=== PATIENT | male | born 1960 | race Caucasian/White ===

== ENCOUNTER 2024-10-28 11:02 | Inpatient (IN) | payer BC, MEDICARE ==
[~2024-10-28] VITALS: Ht 177.8 cm; Wt 95.5 kg
[2024-10-28] MEDS ORDERED: LOSA-30 PO (11:10)
[2024-10-28] MEDS ORDERED: AMLO-258 PO (11:10)
[2024-10-28 11:38] LABS: PLATELET COUNT (AUTO) 246 K/uL (150-450); RED BLOOD CELL COUNT(AUTO) 5.24 MIL/uL (4.50-5.90); RED CELL DISTRIBUTION WIDTH 12.8 % (11.5-14.5); WHITE BLOOD COUNT (AUTO) 7.1 K/uL (4.5-11.0)
[2024-10-28 11:48] LABS: CALCIUM, TOTAL 8.6 mg/dL (8.8-10.5); CREATININE 1.64 mg/dL (0.60-1.30); GLOMERULAR FILTR. RATE CALC 42 mL/min (>60); GLUCOSE,RANDOM 104 mg/dL (70-110); SODIUM SERUM 143 mmol/L (136-145); UREA NITROGEN, BLOOD 15 mg/dL (7-18)
[2024-10-28 11:52] LABS: ASPARTATE AMINOTRANSFERASE 31.0 U/L (15-37); TOTAL PROTEIN, SERUM 7.1 g/dL (6.4-8.2)
[2024-10-28 11:54] LABS: TROPONIN I-HIGH SENSITIVITY 17 ng/L (<76)
[2024-10-28 12:46] LABS: APPEARANCE,URINE CLEAR (CLEAR); GLUCOSE, URINE (UA) NEGATIVE (NEGATIVE); LEUKOCYTE ESTERASE ,URINE NEGATIVE (NEGATIVE); NITRATE,URINE NEGATIVE (NEGATIVE); OCCULT BLOOD,URINE NEGATIVE (NEGATIVE); PH,URINE DRUG SCREEN 7.5 (5.0-8.0); SPECIFIC GRAVITIY, URINE 1.010 (1.003-1.030)
[2024-10-28 12:52] LABS: AMPHET/METH SCREEN,URINE NEGATIVE (NEGATIVE); BARBITURATE SCREEN, URINE NEGATIVE (NEGATIVE); CANNABINOID SCREEN,URINE NEGATIVE (NEGATIVE); COCAINE SCREEN,URINE NEGATIVE (NEGATIVE); METHADONE SCREEN, URINE NEGATIVE (NEGATIVE)
[2024-10-28 12:53] LABS: ALCOHOL, URINE DRUG SCREEN NEGATIVE (NEGATIVE)
[2024-10-28] MEDS: LABETALOL HCL 5 MG/ML 20 ML VIAL IVP ONE (13:33)
[2024-10-28 17:54] VITALS: BP 187/101; PULSE 98; RESP 18; TEMP 98; O2SAT 98
[2024-10-28 18:13] VITALS: BP 159/109; PULSE 99
[2024-10-28] MEDS ORDERED: ONDANSETRON HCL 4 MG/2 ML VIAL IVP PRN (18:30)
[2024-10-28] MEDS: LABETALOL HCL 100 MG TABLET PO SCH (18:44)
[2024-10-28 20:00] VITALS: BP 165/106; PULSE 98; RESP 20; TEMP 98.4; O2SAT 97
[2024-10-28] MEDS: DOCUSATE SODIUM 100 MG CAPSULE PO SCH (20:59)
[2024-10-29] VITALS: BP 138/85; PULSE 97; RESP 20; TEMP 98.2; O2SAT 96
[2024-10-29] MEDS: HEPARIN SODIUM,PORCINE 5,000 UNITS/ML VIAL SQ SCH (00:26)
[2024-10-29] MEDS: ACETAMINOPHEN 325 MG TABLET PO PRN (00:27)
[2024-10-29 02:31] LABS: CREATININE,URINE RANDOM 253.4 mg/dL (30.0-125.0)
[2024-10-29 04:34] VITALS: BP 129/88; PULSE 78; RESP 19; TEMP 98.2; O2SAT 94
[2024-10-29 06:32] LABS: PLATELET COUNT (AUTO) 244 K/uL (150-450); RED BLOOD CELL COUNT(AUTO) 4.75 MIL/uL (4.50-5.90); RED CELL DISTRIBUTION WIDTH 12.5 % (11.5-14.5); WHITE BLOOD COUNT (AUTO) 8.2 K/uL (4.5-11.0)
[2024-10-29 06:48] LABS: CALCIUM, TOTAL 8.5 mg/dL (8.8-10.5); CREATININE 1.83 mg/dL (0.60-1.30); GLOMERULAR FILTR. RATE CALC 37.0 mL/min (>60); GLUCOSE,RANDOM 131.0 mg/dL (70-110); SODIUM SERUM 143.0 mmol/L (136-145); UREA NITROGEN, BLOOD 20.0 mg/dL (7-18)
[2024-10-29 07:41] VITALS: BP 146/91; PULSE 88; RESP 18; TEMP 98; O2SAT 95
[2024-10-29] MEDS: POTASSIUM CHLORIDE 20 MEQ ER TABLET PO ONE (08:45)
[2024-10-29 11:21] VITALS: BP 132/88; PULSE 82; RESP 18; TEMP 98; O2SAT 96
[2024-10-29] MEDS: SODIUM CHLORIDE 0.9% 500 ML IV ONE (11:23)
[2024-10-29 15:37] VITALS: BP 163/89; PULSE 98; RESP 15; TEMP 97.5; O2SAT 15
[2024-10-29] MEDS: NITROGLYCERIN 2% (1 GM=INCH) OINTMENT PACKET TP SCH (17:04)
[2024-10-29 19:39] VITALS: BP 137/98; PULSE 92; RESP 19; TEMP 97.3; O2SAT 98
[2024-10-29] MEDS: LABETALOL HCL 100 MG TABLET PO SCH (20:33)
[2024-10-30] VITALS: BP 137/89; PULSE 68
[2024-10-30 00:01] VITALS: BP 145/90; PULSE 78
[2024-10-30 00:02] VITALS: BP 148/93; PULSE 77
[2024-10-30 05:15] VITALS: BP 147/89; PULSE 66; RESP 18; TEMP 98.1; O2SAT 98
[2024-10-30 06:58] LABS: CALCIUM, TOTAL 9.3 mg/dL (8.8-10.5); CREATININE 1.79 mg/dL (0.60-1.30); GLOMERULAR FILTR. RATE CALC 38.0 mL/min (>60); GLUCOSE,RANDOM 113.0 mg/dL (70-110); SODIUM SERUM 138.0 mmol/L (136-145); UREA NITROGEN, BLOOD 22.0 mg/dL (7-18)
[2024-10-30 07:04] LABS: PHOSPHORUS 3.8 mg/dL (2.5-4.9)
[2024-10-30 08:18] VITALS: BP 146/88; PULSE 71; RESP 18; TEMP 98.1; O2SAT 97
[2024-10-30] MEDS ORDERED: LABE100T51 PO (13:23)
[2024-10-30] MEDS ORDERED: HYDR10TA31 PO (13:23)
== END 2024-10-30 16:33 | disposition home or self-care (01) | DRG 304 ==
LOC: EMS 11:05 → EDH 13:09 → 5N 17:45 → 6S 10-29 20:23
PROVIDERS: ADMIT Internal Medicine; ATTEND Internal Medicine
DX: I16.1 Hypertensive emergency (principal); N17.0 Acute kidney failure with tubular necrosis; E87.6 Hypokalemia; I12.9 Hypertensive chronic kidney disease with stage 1 through stage 4 chronic kidney disease, or unspecified chronic kidney disease; N18.9 Chronic kidney disease, unspecified; T46.5X6A Underdosing of other antihypertensive drugs, initial encounter; Z96.649 Presence of unspecified artificial hip joint; Z91.148 Patient's other noncompliance with medication regimen for other reason; Z79.899 Other long term (current) drug therapy
CPT/HCPCS: 71045; 76770; 80048; 80076; 80307; 81003; 82570; 83735; 83880; 84100; 84300; 84484; 85025; 93005; 96374; 96375; 99285; G0378; J0360; J1644; J3490; J7040; 36415-L1; 36415-TC